=== PATIENT | male | born 1975 | race Hispanic/Latino ===

== ENCOUNTER 2018-04-07 09:42 | Emergency (ER) | payer SELFPAY ==
[~2018-04-07] VITALS: Ht 154.9 cm; Wt 78.8 kg
[2018-04-07 10:29] LABS: HEMATOCRIT 46.8 % (39.0-50.0); HEMOGLOBIN 15.5 g/dl (14.0-18.0); IMMATURE GRANULOCYTES 0.5 % (0.0-5.0); MEAN CELL VOLUME 89.7 fL CALC (80.0-100.0); MEAN CORPUSCULAR HGB 29.7 pG CALC (26.0-32.0); MEAN CORPUSCULAR HGB CONC 33.1 g/L CALC (32.0-36.0); NEUT# 6.25 thou/uL (1.82-7.42); RED BLOOD COUNT 5.22 mill/uL (4.70-6.10)
[2018-04-07 10:30] LABS: URINE BILIRUBIN - DIPSTICK NEGATIVE (NEGATIVE); URINE BLOOD DIPSTICK TRACE-LYSED (NEGATIVE); URINE CLARITY CLEAR; URINE COLOR YELLOW; URINE GLUCOSE - DIPSTICK NEGATIVE (NEGATIVE); URINE KETONE NEGATIVE (NEGATIVE); URINE LEUK ESTERASE NEGATIVE (NEGATIVE); URINE NITRITE - DIPSTICK NEGATIVE (Negative); URINE PH 5.5 (4.5-8.0); URINE PROTEIN - DIPSTICK NEGATIVE (NEG-TRACE); URINE SPECIFIC GRAVITY >=1.030; URINE UROBILINOGEN - DIPSTICK 0.2 E.U./dL (0.2)
[2018-04-07 10:42] LABS: ALBUMIN 4.5 g/dL (3.2-5.0); ALKALINE PHOSPHATASE 105 u/l (38-126); AMYLASE 78 u/l (30-110); ANION GAP 14 (6-22 (CALC)); BILIRUBIN, TOTAL 0.3 mg/dL (0.0-1.4); BUN 15 mg/dL (9-20); BUN/CREATININE RATIO 21 (12-20 (CALC)); CARBON DIOXIDE 26 mmol/l (22-30); CHLORIDE 106 mmol/l (95-108); CREATININE 0.7 mg/dL (0.7-1.3); GFR > 60 ML/MIN (>=60 (CALC)); GFR FOR AFR.AMER. > 60 ML/MIN (>=60 (CALC)); LIPASE 95 u/l (23-300); POTASSIUM 3.8 mmol/l (3.5-5.1); SGOT/AST 23 u/l (17-59); SODIUM 142 mmol/l (137-146); TOTAL PROTEIN 8.2 g/dL (6.3-8.2)
[2018-04-07 13:10] VITALS: BP 130/60
[2018-04-07] MEDS ORDERED: ONDANSETRON4 MG PO ×2 (13:27→14:19)
== END 2018-04-07 13:20 | disposition home or self-care (01) | DRG 446 ==
LOC: ED 09:42
PROVIDERS: Emergency Medicine
DX: K80.50 Calculus of bile duct without cholangitis or cholecystitis without obstruction (principal)

== ENCOUNTER 2018-04-10 14:56 | Observation (INO) | payer SELFPAY ==
[~2018-04-10] VITALS: Ht 162.6 cm; Wt 77.2 kg
[~2018-04-10 14:56] MED LIST: ONDANSETRON4 MG PO
--- NOTE | 2018-04-10 15:06 | NUR ---
PT TO ROOM WITH A STEADY GAIT.
--- NOTE | 2018-04-10 15:11 | NUR ---
initiated ivf bolus as ordered. medicated for [place] and ruq pain.
[2018-04-10 15:53] LABS: URINE BILIRUBIN - DIPSTICK NEGATIVE (NEGATIVE); URINE BLOOD DIPSTICK NEGATIVE (NEGATIVE); URINE COLOR YELLOW; URINE GLUCOSE - DIPSTICK NEGATIVE (NEGATIVE); URINE KETONE NEGATIVE (NEGATIVE); URINE LEUK ESTERASE NEGATIVE (NEGATIVE); URINE NITRITE - DIPSTICK NEGATIVE (Negative); URINE PROTEIN - DIPSTICK NEGATIVE (NEG-TRACE); URINE UROBILINOGEN - DIPSTICK 0.2 E.U./dL (0.2)
[2018-04-10 15:56] LABS: URINE CLARITY CLOUDY
[2018-04-10 15:58] LABS: HEMATOCRIT 46.4 % (39.0-50.0); HEMOGLOBIN 15.6 g/dl (14.0-18.0); IMMATURE GRANULOCYTES 0.3 % (0.0-5.0); MEAN CELL VOLUME 89.1 fL CALC (80.0-100.0); MEAN CORPUSCULAR HGB 29.9 pG CALC (26.0-32.0); MEAN CORPUSCULAR HGB CONC 33.6 g/L CALC (32.0-36.0); NEUT# 12.1 thou/uL (1.82-7.42); RED BLOOD COUNT 5.21 mill/uL (4.70-6.10); RED CELL DISTRI WIDTH 13.7 % (11.5-15.5)
[2018-04-10 16:09] LABS: ALBUMIN 4.6 g/dL (3.2-5.0); ALKALINE PHOSPHATASE 87 u/l (38-126); BILIRUBIN, TOTAL 0.7 mg/dL (0.0-1.4); BUN 10 mg/dL (9-20); BUN/CREATININE RATIO 17 (12-20 (CALC)); CARBON DIOXIDE 23 mmol/l (22-30); CHLORIDE 105 mmol/l (95-108); CREATININE 0.6 mg/dL (0.7-1.3); GFR > 60 ML/MIN (>=60 (CALC)); GFR FOR AFR.AMER. > 60 ML/MIN (>=60 (CALC)); LIPASE 68 u/l (23-300); SODIUM 139 mmol/l (137-146); TOTAL PROTEIN 8.5 g/dL (6.3-8.2)
[2018-04-10 16:10] LABS: ANION GAP 16 (6-22 (CALC)); POTASSIUM 4.6 mmol/l (3.5-5.1); SGOT/AST 52 u/l (17-59)
--- NOTE | 2018-04-10 16:30 | NUR ---
pt resting in no acute distress. ivf completed. vss. pt amb to restroom in no acute distress. updated on wait time for ct scan
--- NOTE | 2018-04-10 17:40 | NUR ---
BC DRAWN AND INITIATED IV ZOSYN ORDERED. PT TOELRATING WELL. VSS.
--- NOTE | 2018-04-10 18:12 | NUR ---
SBAR PRINTED TO FLOOR
--- NOTE | 2018-04-10 18:14 | NUR ---
COMPLETED IV ABT. PT AMB TO BATHROOM WITHOUT DIFFICULTY OR C/O PAIN
--- NOTE | 2018-04-10 18:40 | NUR ---
PT RESTING IN NO ACUTE DISTRESS, AWAITING ADMIT
--- NOTE | 2018-04-10 18:59 | NUR ---
CALLED REPORT TO LYNNETTE GEE MS2. REPORT TO DAMARIS MEDINA AT BEDSIDE.
--- NOTE | 2018-04-10 19:18 | NUR ---
to ms rm 273 via wc in stable condition
[2018-04-10 19:25] VITALS: BP 118/73
--- NOTE | 2018-04-10 20:00 | NUR ---
PATIENT ADMITTED FROM ER VIA WHEELCHAIR WITH ER STAFF IN ATTENDANCE. PATIENT ABLE TO TRANSFER FROM W/C TO STANDING SCALE AND THEN TO BED. STEADY ON HIS FEET. PATIENT IS ROMANIAN SPEAKING ONLY. IV SITE TO LEFT AC-IVF NS HUNG AND INFUSING AT 125CC/HR. IV SITE IS HEALTHY AT THIS TIME. INSTRUCTED PATIENT NPO AT THIS TIME. ATTEMPTED TO ORIENT PATIENT TO ROOM AND SURROUDINGS. INSTRUCTED ON USE OF NURSE CALL LIGHT SYSTEM AND TV REMOTE. SAFETY PRECAUTIONS REINFORCED. CALL LIGHT IN REACH. WILL GET TRANLATOR IN REINFORCE TEACHING. WILL CONT TO MONOITOR.
--- NOTE | 2018-04-10 22:11 | NUR ---
PATIENT RESTING IN BED AT THIS TIME-WAS ABLE TO COMPLETE ADMISSION WITH ASSIST OF THE BRAND STRATEGY MANAGER. PATIENT MEDICATED FOR RUQ PAIN WITH MORPHINE 2MG IVP FOR 5/10 ON PAIN SCALE. REINFORCED SAFETY PRECAUTIONS WITH PATIENT. REINFORCED NPO STATUS AND USE OF URINAL FOR I&O. STATES THAT HIS LAST BM WAS TODAY AND IT WAS NORMAL. DENIES ANY NAUSEA OR VOMITTING AT THIS TIME. WILL BE RECIEVING ANTIBIOTICS TONIGHT AND WILL SEE DOCTOR IN AM. STATES UNDERSTANDING OF THE STATED. CALL LIGHT IN REACH. WILL CONT TO MONITOR.
--- NOTE | 2018-04-10 23:33 | NUR ---
PATIENT RESTING IN BED WITH EYES CLOSED. APPEARS SLEEPING WITH EYES CLOSED. IVF PATENT AND INFUSING AT 125CC/HR. ZOSYN HUNG ORDERED VIA LEFT AC SITE. VOIDING QS YELLOW URINE. CALL LIGHT IN REACH. WILL CONT TO MONITOR.
[2018-04-11] VITALS (9 sets, daily range): BP systolic 107–136; BP diastolic 66–80
--- NOTE | 2018-04-11 03:09 | NUR ---
PATIENT APPEARS SLEEPING AT THIS TIME POSITIONED ON HIS SIDE WITH EYES CLOSED. REMAINS NPO. IVF NS PATENT AND INFUSING VIA LEFT AC SITE. CALL LIGHT IN REACH. WILL CONT TO MONITOR.
--- NOTE | 2018-04-11 04:41 | NUR ---
PATIENT RESTING IN BED-C/O RUQ ABD PAIN. MEDICATED WITH MORPHINE 2MG IVP ORDERED FOR PAIN. IVF PATENT AND INFUSING AT 125CC/HR VIA LEFT AC SITE-SITE REMIANS HEALTHY. VOIDING QS YELLOW URINE IN URINAL. REMAINS NPO. CALL LIGHT IN REACH. WILL CONT TO MONITOR.
[2018-04-11 05:12] LABS: HEMATOCRIT 44.4 % (39.0-50.0); HEMOGLOBIN 14.8 g/dl (14.0-18.0); IMMATURE GRANULOCYTES 0.3 % (0.0-5.0); MEAN CELL VOLUME 90.1 fL CALC (80.0-100.0); MEAN CORPUSCULAR HGB CONC 33.3 g/L CALC (32.0-36.0); NEUT# 7.59 thou/uL (1.82-7.42); RED BLOOD COUNT 4.93 mill/uL (4.70-6.10); RED CELL DISTRI WIDTH 13.9 % (11.5-15.5)
[2018-04-11 05:24] LABS: ANION GAP 13 (6-22 (CALC)); BUN 8 mg/dL (9-20); BUN/CREATININE RATIO 12 (12-20 (CALC)); CARBON DIOXIDE 23 mmol/l (22-30); CHLORIDE 109 mmol/l (95-108); CREATININE 0.7 mg/dL (0.7-1.3); GFR > 60 ML/MIN (>=60 (CALC)); GFR FOR AFR.AMER. > 60 ML/MIN (>=60 (CALC)); POTASSIUM 4.3 mmol/l (3.5-5.1); SODIUM 141 mmol/l (137-146)
--- NOTE | 2018-04-11 07:10 | NUR ---
REPORT RECEIVED FROM LYNNETTE GEE;PT RESTING IN SUPINE POSITION;INTRODUCED SELF TO PT WHO VERBALIZED UNDERSTANDING;PT DENIES ANY CURRENT PAIN OR NEEDS;IV FLUIDS INFUSING WELL TO LAC;PT RE-EDUCATED ON NPO DIET STATUS;FALL PRECAUTIONS IN PLACE WITH CALL LIGHT IN REACH;WILL CONTINUE TO MONITOR
[2018-04-11 07:45] LABS: BILIRUBIN, TOTAL 0.8 mg/dL (0.0-1.4)
[2018-04-11 07:58] LABS: ALBUMIN 3.5 g/dL (3.2-5.0); TOTAL PROTEIN 6.5 g/dL (6.3-8.2)
--- NOTE | 2018-04-11 08:20 | NUR ---
PT RESTING IN SEMI FOWLERS POSITION,LUXEMBOURGER SPEAKING ONLY;VS OBTAINED AND ASSESSMENT COMPLETED;RESPIRATIONS EVEN AND UNLABORED ON RA,CLEAR LUNG SOUNDS NOTED;ABDOMEN SOFT ON PALPATION AND ACTIVE IN ALL 4 QUADRANTS,TENDERNESS NOTED TO RUQ;PT REPORTS MINIMAL PAIN TO ABDOMEN, PAIN SCALE AND REPORTING RE-EDUCATED;STRONG PEDAL PULSES;#20G TO LAC INFUSING NS @ 125ML/HR,SITE APPEARS HEALTHY;PT RE-EDUCATED ON NPO DIET STATUS AND VERBALIZES UNDERSTANDING;ALL SAFETY PRECAUTIONS REINFORCED WITH BED IN THE LOWEST POSITION AND CALL LIGHT IN REACH;ENCOURAGED PT TO CALL FOR ASSISTANCE IF NEEDED;WILL CONTINUE TO MONITOR
--- NOTE | 2018-04-11 11:15 | NUR ---
PT RESTING IN BED WATCHING TV;PT DENIES ANY CURRENT ABDOMINAL PAIN;RESPIRATIONS REMAIN EVEN AND UNLABORED ON RA;IV FLUIDS CONTINUE TO INFUSE @ 125ML/HR TO LAC;REINFORCED NPO DIET;PT VOICES NO OTHER CURRENT NEEDS AT THIS TIME AND IS INSTRUCTED TO CALL FOR ASSISTANCE IF NEEDED;CALL LIGHT IN REACH;WILL CONTINUE TO MONITOR
--- NOTE | 2018-04-11 11:46 | NUR ---
AT BEDSIDE DISCUSSING POC
--- NOTE | 2018-04-11 12:00 | NUR ---
AT BEDSIDE DISCUSSING OPTIONS FOR PROCEDURE WITH CHRISTIANO,OR DESIREE ROTARY DRYER OPERATOR;PT AGREES TO LAPAROSCOPIC CHOLECYSTECTOMY,ALL RISKS INCLUDING DISCUSSED AND CONSENT SIGNED BY PT AT BEDSIDE;PT DENIES ANY ADDITIONAL NEEDS AND IS INSTUCTED TO CALL FOR ASSISTANCE IF NEEDED;CALL LIGHT IN REACH;WILL CONTINUE TO MONITOR
--- NOTE | 2018-04-11 15:58 | NUR ---
PT TRANSFERRED TO OR VIA STRETCHER ACCOMPANIED BY OR STAFF IN STABLE CONDITION
--- NOTE | 2018-04-11 19:36 | NUR ---
PATIENT RECIEVED FROM PACU VIA STRETCHER WITH PACU STAFF IN ATTENDANCE. PATIENT IS DROWSY AND ABLE TO ASSIST IN TRANFER FROM STRETCHER TO BED. PATIENT WITH IV SITE TO LEFT AC SITE WITH IVF PATENT AND INFUSING AT 100CC/HR. SITE IS HEALTHY AT THIS TIME. SMALL ABD DRESSING ARE CDIX4 AT THIS TIME. SCD'S APPLIED JANEEN. MONITORING VS PER POST-OP PROTOCOL. SAFETY PRECAUTIONS REINFORCED. CALL LIGHT IN REACH. WILL CONT TO MONITOR.
--- NOTE | 2018-04-11 21:17 | NUR ---
PATIENT AWAKE ALERT AND ORIENTEDX3. TAKING SIPS OF PO FLUIDS. MEDICATED FOR POST-OP PAIN-7/10 ON PAIN SCALE WITH PERCOCET 5/325MG PO. VS BEING TAKEN PER POST-OP PROTOCOL. IVF PATENT AND INFUSING VIA LEFT AC AT 100CC/HR. CALL LIGHT IN REACH. WILL CONT TO MONITOR.
[2018-04-12] VITALS: BP 115/79
--- NOTE | 2018-04-12 00:32 | NUR ---
PATIENT RESTING IN BED-TOLERATED ICE CHIPS WELL. C/O POST-OP RUQ/ABD PAIN-8/10 ON PAIN SCALE. MEDICATED WITH MORPHINE 2MG IVP ORDERED FOR PAIN. IVF PATENT AND INFUSING ORDERED. ZOSYN HUNG ORDERED. REINFORCED CDB EXERCISES. SCD'S IN PLACE. PATIENT HAS VOIDED IN URINAL 400CC OF YELLOW URINE. CALL LIGHT IN REACH. WILL CONT TO MONITOR.
[2018-04-12 04:00] VITALS: BP 130/78
--- NOTE | 2018-04-12 04:00 | NUR ---
PATIENT APPEARS SLEEPING AT THIS TIME WITH EYES CLOSED. CALL LIGHT IN REACH. WILL CONT TO MONITOR.
[2018-04-12 05:42] LABS: HEMATOCRIT 46.8 % (39.0-50.0); HEMOGLOBIN 15.6 g/dl (14.0-18.0); IMMATURE GRANULOCYTES 0.4 % (0.0-5.0); MEAN CELL VOLUME 91.1 fL CALC (80.0-100.0); MEAN CORPUSCULAR HGB 30.4 pG CALC (26.0-32.0); MEAN CORPUSCULAR HGB CONC 33.3 g/L CALC (32.0-36.0); NEUT# 7.02 thou/uL (1.82-7.42); RED BLOOD COUNT 5.14 mill/uL (4.70-6.10); RED CELL DISTRI WIDTH 13.9 % (11.5-15.5)
[2018-04-12 05:44] LABS: ALBUMIN 3.4 g/dL (3.2-5.0); ALKALINE PHOSPHATASE 114 u/l (38-126); ANION GAP 13 (6-22 (CALC)); BUN 6 mg/dL (9-20); BUN/CREATININE RATIO 10 (12-20 (CALC)); CARBON DIOXIDE 23 mmol/l (22-30); CHLORIDE 108 mmol/l (95-108); CREATININE 0.6 mg/dL (0.7-1.3); GFR > 60 ML/MIN (>=60 (CALC)); GFR FOR AFR.AMER. > 60 ML/MIN (>=60 (CALC)); MAGNESIUM 1.9 mg/dL (1.6-2.3); POTASSIUM 4.1 mmol/l (3.5-5.1); SGOT/AST 102 u/l (17-59); SODIUM 140 mmol/l (137-146); TOTAL PROTEIN 6.4 g/dL (6.3-8.2)
--- NOTE | 2018-04-12 07:10 | NUR ---
REPORT RECEIVED FROM LYNNETTE GEE;PT RESTING IN SEMI FOWLERS POSITION;INTRODUCED SELF TO PT AND POC DISCUSSED;PT DENIES ANY CURRENT PAIN OR NEEDS;PAIN SCALE AND REPORTING RE-EDUCATED;IV FLUIDS INFUSING TO LAC WITH EASE;SCD'S IN PLACE;ENCOURAGED PT TO CALL FOR ASSISTANCE IF NEEDED;CALL LIGHT IN REACH;WILL CONTINUE TO MONITOR
[2018-04-12 08:29] VITALS: BP 130/75
--- NOTE | 2018-04-12 08:30 | NUR ---
PT RESTING IN SEMI FOWLERS POSITION WATCHING TV;VS OBTAINED AND ASSESSMENT COMPLETED;PT REPORTS PAIN TO BE 3/10 ON THE PAIN SCALE TO ABDOMEN AND DENIES THE NEED FOR PAIN MEDICATION AT THIS TIME;PAIN SCALE AND REPORTING RE-EDUCATED;PT IS POST OP DAY #1 REECE HUYNHE,DRESSINGS X4 CDI TO ABDOMEN;PT EDUCATED ON SLINTING ABDOMEN WHEN AMBULATING TO DECREASE PAIN;STRONG PEDAL PULSES,SCD'S IN PLACE;#20G TO LAC INFUSING NS @ 100ML/HR,SITE APPEARS HEALTHY;PT DENIES ANY NAUSEA/VOMITING AND HAS BEEN ADVANCED TO A REGULAR DIET;ALL SAFETY PRECAUTIONS REINFORCED;INSTRUCTED PT TO CALL FOR ASSISTANCE IF NEEDED;CALL LIGHT IN REACH;WILL CONTINUE TO MONITOR
--- NOTE | 2018-04-12 11:20 | NUR ---
PT RESTING IN SUPINE POSITION,IN AND OUT OF SLEEP;RESPIRATIONS EVEN AND UNLABORED ON RA;PT REPORTS MINIMAL PAIN TO ABDOMEN AT THIS TIME;IV FLUIDS INFUSING WELL TO LAC;PT DENIES ANY CURRENT NEEDS AND IS INSTRUCTED TO CALL FOR ASSISTANCE IF NEEDED;CALL LIGHT IN REACH;WILL CONTINUE TO MONITOR
--- NOTE | 2018-04-12 12:40 | NUR ---
AT BEDSIDE DISCUSSING PT POC.
--- NOTE | 2018-04-12 13:25 | NUR ---
PT AMBULATED THE HALLWAYS WITH A STEADY GAIT.PT REPORTS MINIMAL ABD PAIN BUT DOES REPORT ACHING TO RIGHT SHOULDER RATING 8/10 ON THE PAIN SCALE;PT EDUCATED ON HOW AMBULATION HELPS WITH GAS PAIN.PT RE-POSITIONED IN BED AND 300CC OF CLEAR/YELLOW URINE EMPTIED FROM URINAL;WILL CONTINUE TO MONITOR
--- NOTE | 2018-04-12 13:35 | NUR ---
PT MEDICATED WITH 15MG IVP OF TORADOL FOR RIGHT SHOULDER PAIN RATING 8/10 ON THE PAIN SCALE;WILL CONTINUE TO MONITOR
[2018-04-12] MEDS ORDERED: LORTAB 5/3255 MG PO (14:56)
[2018-04-12 16:07] VITALS: BP 117/77
--- NOTE | 2018-04-12 16:10 | NUR ---
ALL DISCHARGE INSTRUCTIONS DISCUSSED AT THIS TIME INCLUDING PRESCRIPTIONS.TRANSLATION PROVIDED BY CHRISTIANO,OR DESIREE;PT DENIES ANY ADDITIONAL NEEDS AT THIS TIME;IV SITE REMOVED WITH CATHETER INTACT;WHEELCHAIR TO BE PROVIDED FOR DISCHARGE
--- NOTE | 2018-04-12 16:19 | NUR ---
Discharge instructions given. Patient verbalizes understanding of same. Discharged in stable condition via Wheelchair to Home with *Other. All belongings sent with pt.
== END 2018-04-12 16:09 | disposition home or self-care (01) | DRG 419 ==
LOC: ED 14:56 → ED-I 18:00 → ED 18:12 → MS2 18:13
PROVIDERS: Family Medicine; Internal Medicine Nephrology; Nurse Practitioner Family; Surgery; ADMIT Internal Medicine; ATTEND Internal Medicine
PROC: 0FT44ZZ Resection of Gallbladder, Percutaneous Endoscopic Approach (ICD-10-PCS; principal; 2018-04-11)
DX: K80.00 Calculus of gallbladder with acute cholecystitis without obstruction (principal); E86.0 Dehydration; R74.0 Nonspecific elevation of levels of transaminase and lactic acid dehydrogenase [LDH]
CPT/HCPCS: G0378; J2710; Q9967